=== PATIENT | female | born 1960 | race Caucasian/White ===

== ENCOUNTER 2017-02-04 22:34 | Emergency (ER) | payer SELFPAY ==
[~2017-02-04] VITALS: Ht 170.2 cm; Wt 61.8 kg
[~2017-02-04 22:34] MED LIST: ATIVAN0.5 MG PO; FLEXERIL PO; LISINOPRIL10 MG PO; MECLIZINE25 MG PO; NAPROSYN500 MG PO; NORVASC PO
[2017-02-04 23:48] LABS: HEMATOCRIT 39.8 % (37.0-47.0); HEMOGLOBIN 13.4 g/dl (12.0-16.0); IMMATURE GRANULOCYTES 0.8 % (0.0-1.0); MEAN CELL VOLUME 92.8 fL CALC (80.0-100.0); MEAN CORPUSCULAR HGB 31.2 pG CALC (26.0-32.0); MEAN CORPUSCULAR HGB CONC 33.7 g/L CALC (32.0-36.0); NEUT# 3.77 thou/uL (2.00-7.15); RED BLOOD COUNT 4.29 mill/uL (4.20-5.60); RED CELL DISTRI WIDTH 13.5 % (11.5-15.5)
[2017-02-04 23:52] LABS: BARBITURATES NEGATIVE (NEGATIVE); COCAINE NEGATIVE (NEGATIVE); METHADONE NEGATIVE (NEGATIVE); TETRAHYDROCANNABIONOL NEGATIVE (NEGATIVE); TRICYLIC ANTIDEPRESSANTS POSITIVE (NEGATIVE)
[2017-02-04 23:53] LABS: OXCYCODONE POSITIVE (NEGATIVE)
[2017-02-04 23:59] LABS: ALBUMIN 4.9 g/dL (3.2-5.0); ALKALINE PHOSPHATASE 87 u/l (38-126); ANION GAP 19 (6-22 (CALC)); BILIRUBIN, TOTAL 0.3 mg/dL (0.0-1.4); BUN 12 mg/dL (7-17); BUN/CREATININE RATIO 17 (12-20 (CALC)); CALCIUM 9.6 mg/dL (8.4-10.2); CARBON DIOXIDE 23 mmol/l (22-30); CHLORIDE 105 mmol/l (95-108); CREATININE 0.7 mg/dL (0.5-1.0); ETHYL ALCOHOL 228 mg/dl (0-30); GFR > 60 ML/MIN (>=60 (CALC)); GFR FOR AFR.AMER. > 60 ML/MIN (>=60 (CALC)); GLUCOSE 115 mg/dL (65-105); POTASSIUM 4.5 mmol/l (3.5-5.1); SGOT/AST 57 u/l (14-36); SGPT/ALT 54 u/l (9-52); SODIUM 143 mmol/l (137-146); TOTAL PROTEIN 7.7 g/dL (6.3-8.2)
[2017-02-05 03:00] VITALS: BP 151/79
== END 2017-02-05 03:00 | DRG 605 ==
LOC: ED 22:34
PROVIDERS: Emergency Medicine
PROC: 0HQ1XZZ Repair Face Skin, External Approach (ICD-10-PCS; principal; 2017-02-05)
DX: S01.81XA Laceration without foreign body of other part of head, initial encounter (principal); F10.129 Alcohol abuse with intoxication, unspecified; Y90.7 Blood alcohol level of 200-239 mg/100 ml; Y04.8XXA Assault by other bodily force, initial encounter; Y92.009 Unspecified place in unspecified non-institutional (private) residence as the place of occurrence of the external cause; F17.210 Nicotine dependence, cigarettes, uncomplicated

== ENCOUNTER 2017-05-16 10:56 | Emergency (ER) | payer OTHER ==
[~2017-05-16] VITALS: Ht 170.2 cm; Wt 70.0 kg
[2017-05-16] MEDS ORDERED: MOTRIN800 MG PO (12:07)
[2017-05-16 12:14] VITALS: BP 195/93
== END 2017-05-16 12:18 | disposition home or self-care (01) | DRG 563 ==
LOC: ED 10:56
DX: S39.012A Strain of muscle, fascia and tendon of lower back, initial encounter (principal); M25.512 Pain in left shoulder; V49.49XA Driver injured in collision with other motor vehicles in traffic accident, initial encounter; Y92.414 Local residential or business street as the place of occurrence of the external cause

== ENCOUNTER 2018-07-05 11:43 | Emergency (ER) | payer OTHER ==
[~2018-07-05] VITALS: Ht 170.2 cm; Wt 70.0 kg
[~2018-07-05 11:43] MED LIST changes: +ACETA PO; +AMLODIPINE5 MG PO; +ATORVASTATIN CA40 MG PO; +CHILD ASA LS81 MG PO; +KLONOPIN0.5 MG PO; +LISINOP/HCTZ1 TA1 PO; +MOTRIN800 MG PO; +MULTIVITAMI1 PO; +OXYCODONE PO; +TIZANIDINE HCL4 MG PO; +VOLTAREN1%GEL TOP
[2018-07-05] MEDS ORDERED: AMITRIPTYLIN25 MG PO (12:18)
[2018-07-05 12:38] LABS: HEMATOCRIT 39.4 % (37.0-47.0); HEMOGLOBIN 13.2 g/dl (12.0-16.0); IMMATURE GRANULOCYTES 0.3 % (0.0-5.0); MEAN CELL VOLUME 93.1 fL CALC (80.0-100.0); MEAN CORPUSCULAR HGB 31.2 pG CALC (26.0-32.0); MEAN CORPUSCULAR HGB CONC 33.5 g/L CALC (32.0-36.0); NEUT# 5.44 thou/uL (2.00-7.15); RED BLOOD COUNT 4.23 mill/uL (4.20-5.60); RED CELL DISTRI WIDTH 13.3 % (11.5-15.5)
[2018-07-05 13:03] LABS: ALBUMIN 4.6 g/dL (3.2-5.0); ALKALINE PHOSPHATASE 69 u/l (38-126); BILIRUBIN, TOTAL 0.6 mg/dL (0.0-1.4); BUN 11 mg/dL (7-17); BUN/CREATININE RATIO 15 (12-20 (CALC)); CARBON DIOXIDE 22 mmol/l (22-30); CHLORIDE 103 mmol/l (95-108); CREATININE 0.8 mg/dL (0.5-1.0); GFR > 60 ML/MIN (>=60 (CALC)); GFR FOR AFR.AMER. > 60 ML/MIN (>=60 (CALC)); LIPASE 129 u/l (23-300); SGOT/AST 28 u/l (14-36); SODIUM 139 mmol/l (137-146); TOTAL PROTEIN 7.4 g/dL (6.3-8.2)
[2018-07-05 13:21] LABS: ANION GAP 17 (6-22 (CALC)); POTASSIUM 3.3 mmol/l (3.5-5.1)
[2018-07-05] MEDS ORDERED: K-TAB20 MEQ PO (15:27)
[2018-07-05 15:54] VITALS: BP 140/70
== END 2018-07-05 16:01 | disposition home or self-care (01) | DRG 552 ==
LOC: ED 11:43
PROVIDERS: Family Medicine
DX: S16.1XXA Strain of muscle, fascia and tendon at neck level, initial encounter (principal); S39.012A Strain of muscle, fascia and tendon of lower back, initial encounter; R07.89 Other chest pain; G89.29 Other chronic pain; M54.9 Dorsalgia, unspecified; I10 Essential (primary) hypertension; F17.200 Nicotine dependence, unspecified, uncomplicated; V59.40XA Driver of pick-up truck or van injured in collision with unspecified motor vehicles in traffic accident, initial encounter; Z86.73 Personal history of transient ischemic attack (TIA), and cerebral infarction without residual deficits

== ENCOUNTER → 2018-09-10 | Outpatient (REF) | payer MEDICARE ==
[~2018-09-10] MED LIST changes: +AMITRIPTYLIN25 MG PO; +K-TAB20 MEQ PO
== END | disposition home or self-care (01) ==
LOC: MRI 07:16
PROVIDERS: ATTEND Neurological Surgery
DX: M54.12 Radiculopathy, cervical region (principal); M54.14 Radiculopathy, thoracic region; M54.17 Radiculopathy, lumbosacral region; R51 Headache; R42 Dizziness and giddiness

== ENCOUNTER 2021-11-09 06:53 | Day surgery (SDC) | payer MEDICARE, MEDICAID ==
[~2021-11-09] VITALS: Ht 170.2 cm; Wt 61.2 kg
[2021-11-09 09:19] VITALS: BP 158/86
== END 2021-11-09 09:04 | disposition home or self-care (01) ==
LOC: PO 06:53 → ORM 06:53
PROVIDERS: ATTEND Physical Medicine & Rehabilitation
DX: M53.3 Sacrococcygeal disorders, not elsewhere classified (principal); G89.4 Chronic pain syndrome; M62.838 Other muscle spasm; M47.816 Spondylosis without myelopathy or radiculopathy, lumbar region; M51.36 Other intervertebral disc degeneration, lumbar region
CPT/HCPCS: Q9967

== ENCOUNTER 2022-03-29 06:57 | Day surgery (SDC) | payer MEDICARE, MEDICAID ==
[~2022-03-29] VITALS: Ht 170.2 cm; Wt 66.7 kg
[2022-03-29] MEDS ORDERED: CARAFATE PO (07:21)
[2022-03-29 09:41] VITALS: BP 184/92
== END 2022-03-29 09:54 | disposition home or self-care (01) ==
LOC: ORM 06:57
PROVIDERS: ATTEND Physical Medicine & Rehabilitation
DX: M53.3 Sacrococcygeal disorders, not elsewhere classified (principal); G89.4 Chronic pain syndrome
CPT/HCPCS: J3490; Q9967

== ENCOUNTER 2022-06-14 07:01 | Day surgery (SDC) | payer MEDICARE, MEDICAID ==
[~2022-06-14] VITALS: Ht 170.2 cm; Wt 60.8 kg
[~2022-06-14 07:01] MED LIST changes: +CARAFATE PO
[2022-06-14 09:27] VITALS: BP 154/100
== END 2022-06-14 09:43 | disposition home or self-care (01) ==
LOC: PO 07:01 → ENDO 07:01 → ORM 07:01
PROVIDERS: ATTEND Physical Medicine & Rehabilitation
DX: M47.816 Spondylosis without myelopathy or radiculopathy, lumbar region (principal)

== ENCOUNTER 2023-01-09 12:22 | Emergency (ER) | payer MEDICARE, MEDICAID ==
[2023-01-09] VITALS (8 sets, daily range): BP systolic 102–129; BP diastolic 55–73
[~2023-01-09] VITALS: Ht 170.2 cm; Wt 65.0 kg
== END 2023-01-09 15:08 | disposition home or self-care (01) ==
LOC: ED 12:22
DX: M54.50 Low back pain, unspecified (principal); I10 Essential (primary) hypertension; F17.210 Nicotine dependence, cigarettes, uncomplicated; Z86.73 Personal history of transient ischemic attack (TIA), and cerebral infarction without residual deficits

== ENCOUNTER 2023-01-21 12:40 | Emergency (ER) | payer MEDICARE, MEDICAID ==
[~2023-01-21] VITALS: Ht 167.6 cm; Wt 65.0 kg
[2023-01-21 14:44] LABS: URINE BILIRUBIN - DIPSTICK NEGATIVE (NEGATIVE); URINE BLOOD DIPSTICK NEGATIVE (NEGATIVE); URINE COLOR YELLOW; URINE GLUCOSE - DIPSTICK NEGATIVE (NEGATIVE); URINE KETONE NEGATIVE (NEGATIVE); URINE LEUK ESTERASE NEGATIVE (NEGATIVE); URINE PROTEIN - DIPSTICK NEGATIVE (NEG-TRACE); URINE UROBILINOGEN - DIPSTICK 0.2 E.U./dL (0.2)
[2023-01-21 14:54] LABS: URINE NITRITE - DIPSTICK NEGATIVE (Negative)
[2023-01-21 16:49] VITALS: BP 126/69
[2023-01-21 17:00] VITALS: BP 132/64
[2023-01-21 17:21] VITALS: BP 112/56
[2023-01-21 17:40] VITALS: BP 117/64
[2023-01-21 18:20] VITALS: BP 125/67
[2023-01-21] MEDS ORDERED: FLEXERIL5 M1 PO (18:41)
[2023-01-21] MEDS ORDERED: OXYCODONE10 M1 PO (18:41)
[2023-01-21 18:55] VITALS: BP 125/67
== END 2023-01-21 18:58 | disposition home or self-care (01) ==
LOC: ED 12:40
PROVIDERS: Family Medicine
DX: S39.012A Strain of muscle, fascia and tendon of lower back, initial encounter (principal); I10 Essential (primary) hypertension; F17.210 Nicotine dependence, cigarettes, uncomplicated; X58.XXXA Exposure to other specified factors, initial encounter; Z98.1 Arthrodesis status; Z86.73 Personal history of transient ischemic attack (TIA), and cerebral infarction without residual deficits

== ENCOUNTER 2024-07-30 13:47 | Emergency (ER) | payer MEDICARE, MEDICAID ==
[~2024-07-30] VITALS: Ht 170.2 cm; Wt 74.8 kg
[2024-07-30] VITALS (10 sets, daily range): BP systolic 119–162; BP diastolic 73–103
[~2024-07-30 13:47] MED LIST changes: +ALPRAZOLAM1 MG PO; +AMITRIPTYLINE H50 MG PO; +BACTRIM DS1 TAB PO; +CYCLOBENZAPRINE10 MG PO; +FLEXERIL5 M1 PO; +GABAPENTIN600 MG PO; +LEVOTHYROXIN50 MC1 PO; +LOPID600 MG PO; +OXYCODONE10 M1 PO; +OXYCODONE5 M1 PO; +PERCOCET 5/325M1 TAB PO
[2024-07-30] MEDS ORDERED: MORPHINE SULFATE 4 MG/ML VIAL IM ONE (14:15)
[2024-07-30] MEDS ORDERED: ONDANSETRON 4 MG/TAB ODT PO ONE (14:15)
[2024-07-30] MEDS ORDERED: ONDANSETRON 4 MG/TAB ODT SL ONE (14:25)
[2024-07-30] MEDS ORDERED: MORPHINE SUL15 MG PO (16:17)
== END 2024-07-30 16:38 | disposition home or self-care (01) ==
LOC: ED 13:47
DX: M54.50 Low back pain, unspecified (principal); I10 Essential (primary) hypertension; F17.200 Nicotine dependence, unspecified, uncomplicated; Z86.73 Personal history of transient ischemic attack (TIA), and cerebral infarction without residual deficits; Z98.1 Arthrodesis status